=== PATIENT | female | born 1975 | race Caucasian/White ===

== ENCOUNTER 2018-02-07 12:10 | Emergency (ER) | payer OTHER ==
[~2018-02-07] VITALS: Ht 162.6 cm; Wt 87.5 kg
[~2018-02-07 12:10] MED LIST: ALEVE220 MG PO; HYCET 325 MG/1473 ML PO; OMEPRAZOLE D/R20 MG PO; ZYRTEC ALLERGY10 MG PO
--- NOTE | 2018-02-07 14:06 | RADIOLOGY REPORT ---
EXAMINATION: CHEST 2 VIEWS CLINICAL INFORMATION: Chest pain. COMPARISON: 06/16/2015. TECHNIQUE: PA and lateral views of the chest were obtained. FINDINGS: The cardiac silhouette is not enlarged. The mediastinal and hilar contours are unremarkable. There are neither pleural effusions nor pneumothoraces. There are no consolidations. The osseous structures are unremarkable. IMPRESSION: No evidence for acute disease.
[2018-02-07 15:01] LABS: ABSOLUTE BASOPHIL COUNT 0 /CUMM (0.0-0.2); ABSOLUTE EOSINOPHIL COUNT 0 /CUMM (0.0-0.7); ABSOLUTE GRANULOCYTE CT 4.7 /CUMM (1.4-6.5); ABSOLUTE LYMPH COUNT 2.5 /CUMM (1.2-3.4); ABSOLUTE MONOCYTE COUNT 0.6 /CUMM (0.10-0.60); BASOPHIL % 0.5 % (0.0-2.0); EOSINOPHIL % 0.5 % (0-5); GRANULOCYTE % 59.5 % (42.2-75.2); MEAN CORPUSCULAR HGB CONC 32.7 G/DL (33.0-37.0); MEAN CORPUSCULAR VOLUME 85.6 FL (81.0-99.0); MEAN PLATELET VOLUME 8.1 FL (7.4-10.4); PLATELET COUNT 290 /CUMM (130-400); RBC DISTRIBUTION WIDTH 13.8 % (11.5-14.5); RED BLOOD CELL CT 4.68 /CUMM (4.20-5.40); WHITE BLOOD CELL COUNT 7.9 /CUMM (4.8-10.8)
--- NOTE | 2018-02-07 17:06 | ED GENERAL ADULT ---
History of Present Illness General Chief Complaint: Chest Pain Stated Complaint: CHEST PRESSURE, X 2 WEEKS, HX ANXIETY Source: patient, old records Exam Limitations: no limitations Vital Signs & Intake/Output Vital Signs & Intake/Output Vital Signs Date Time Temp Pulse Resp B/P B/P Pulse O2 O2 Flow FiO2 Mean Ox Delivery Rate 02/07 1903 99.2 76 16 116/77 100 Room Air 02/07 1541 97.0 81 18 129/90 100 Room Air Room Air 02/07 1229 98.4 91 20 129/83 97 Room Air Allergies Coded Allergies: MDX - PCN (penicillin) (PCN (PENICILLIN)) (swollen mouth 06/16/15) Reconcile Medications CETIRIZINE HCL (Zyrtec) 10 MG SGL 1 CAP PO DAILY ALLERGIES (Reported) HYDROCODONE/ACETAMINOPHEN (Hycet 7.5 MG-325 MG/15 Ml Soln) 473 ML MIREYA 15 ML PO Q4 PAIN NO DRIVING WHILE TAKING NARCOTICS. Omeprazole 20 MG ECC 1 CAP PO DAILY Reflux Triage Note: PT TO ED C/O "PULSE IN STOMACH AND THROAT" X 2 WEEKS. C/O CHEST PRESSURE AT TIMES. CURRENTLY DENIES CHEST PRESSURE, C/O FEELING "NUMB". H/O ANXIETY. C/O NAUSEA. Triage Nurses Notes Reviewed? yes : No Patient currently breastfeeds: No HPI: Patient is 42 Y F with no sign PMH except anxiety and bariatric/herina repair 2y ago presented to the ED with CC of chest discomfort. Patient reported that in the last 3 weeks she was having episodes of chest/abd discomfort. She reported the discomfort as "pulsating like", travels from neck and chest to abdomen area. The most recent episode was last night, woke her up from sleep, and she could not sleep and lasted the whole night. The episodes happens occasionally, at different times but more often when lying in bed, total of 5 time in the last 3 weeks, no relation to food or exertion. She noted episodes are associated with nausea, feeling of "almost passing out" as well as anxiety. She denied SOB, vomiting, chest pain, or actually passing out, jerky motions, incontinence. She denied any chest pain. Patient denied history of syncope except one episode long time ago when she was following strict diet. Patient reported lots of mental stress related to work and study recently. Did not visit any doctor for anxiety for a long time, but was last administered xanax which she did not take due to drowsiness. 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 Occasionally drinks and smokes (1-2 Cigarettes/week). FH significant for panic attack in MOM ( when 72y from stroke) and DM in father. (Morgan Monreal MD,Adrianne Morris) Past History Travel History Traveled to [place] past 21 day No Medical History Any Pertinent Medical History? 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 No (Morgan Monreal MD,Adrianne Morris) Review of Systems Review of Systems Constitutional: Reports: see HPI. (Morgan Monreal MD,Adrianne Morris) Physical Exam Physical Exam General Appearance: well developed/nourished, no apparent distress, alert, awake Head: atraumatic, normal appearance Ears, Nose, Throat: normal pharynx, normal ENT inspection Neck: normal inspection, supple Cardiovascular: regular rate/rhythm Gastrointestinal: soft, non-tender Core Measures ACS in differential dx? No CVA/TIA Diagnosis: No Sepsis Present: No Sepsis Focused Exam Completed? No (Morgan Monreal MD,Adrianne Morris) Progress Differential Diagnoses I considered the following diagnoses in my evaluation of the patient: [axniety, palpitation, arythmia] Plan of Care: Orders Procedure Date/time Status TROPONIN LEVEL 02/07 1800 Active EKG 02/07 1800 Active HUMAN BETA HCG SCREEN 02/07 1450 Complete TROPONIN LEVEL 02/07 1249 Complete COMPREHENSIVE METABOLIC PANEL 02/07 1249 Complete CBC WITHOUT DIFFERENTIAL 02/07 1249 Complete EKG 02/07 1213 Active Laboratory Tests 02/07/18 1450: Anion Gap 10, Estimated GFR > 60, BUN/Creatinine Ratio 28.3 H, Glucose 87, Calcium 9.5, Total Bilirubin 0.6, AST 25, ALT 32, Alkaline Phosphatase 57, Troponin I < 0.01, Total Protein 8.0, Albumin 4.1, Globulin 3.9, Albumin/ Globulin Ratio 1.1, Total Beta HCG NEGATIVE, CBC w Diff NO MAN DIFF REQ, RBC 4.68, MCV 85.6, MCH 28.0, MCHC 32.7 L, RDW 13.8, MPV 8.1, Gran % 59.5, Lymphocytes % 31.4, Monocytes % 8.1, Eosinophils % 0.5, Basophils % 0.5, Absolute Granulocytes 4.7, Absolute Lymphocytes 2.5, Absolute Monocytes 0.6, Absolute Eosinophils 0, Absolute Basophils 0 02/07/18 1251: Total Beta HCG Cancelled (Morgan Monreal MD,Adrianne Morris) CXR Impression: PATIENT: BEN BRUNER PRESENT AGE: 42 PATIENT ACCOUNT NO: [id number] : 76 LOCATION: [facility] ORDERING PHYSICIAN: Ayden GRAY SERVICE DATE: 02/07/18 EXAM TYPE: RAD - XRY-CHEST XRAY, TWO VIEWS EXAMINATION: CHEST 2 VIEWS CLINICAL INFORMATION: Chest pain. COMPARISON: 06/16/2015. TECHNIQUE: PA and lateral views of the chest were obtained. FINDINGS: The cardiac silhouette is not enlarged. The mediastinal and hilar contours are unremarkable. There are neither pleural effusions nor pneumothoraces. There are no consolidations. The osseous structures are unremarkable. IMPRESSION: No evidence for acute disease. DICTATED BY: Kalin Wasserman MD DATE/TIME DICTATED:02/07/181401 COST REPORT CLERK:PRADEEP DATE/TIME TRANSCRIBED:02/07/181401 CONFIDENTIAL, DO NOT COPY WITHOUT APPROPRIATE AUTHORIZATION. <Electronically signed in Other Vendor System> SIGNED BY: Kalin Wasserman MD 02/07/181405 Initial ED EKG: NSR, rate (69), inverted T waves in V2 compared to prior Prior EKG: changed Comments: 02/07/2018 7:33:24 PM I have updated ben on her test results. She has no complaint at this time. She is agreeable to a few Xanax for possible anxiety. We have discussed a repeat EKG and troponin but given her lack of risk factors the patient has declined this. I do not feel this patient is at high risk of coronary artery disease/ACS. (Kateryna VENEGAS,Dilan Mujica) Departure Departure Condition: Stable Referrals: Melvin VENEGAS,Hesham Lopez (PCP/Family) Departure Forms: Customer Survey General Discharge Information (Morgan Monreal MD,Adrianne Morris) Departure Disposition: HOME OR SELF CARE Clinical Impression Primary Impression: Anxiety Secondary Impressions: Atypical chest pain Additional Instructions: Rest, no exertion. Xanax as needed for chest discomfort or anxiety. Follow-up with your primary care physician this week for reevaluation. Return if any concerns or sudden worsening. Please note that there might be incidental findings in your evaluation that are unrelated to the current emergency department visit. Please notify your primary care doctor about this emergency department visit in order to obtain and review all of the testing performed so that these incidental findings can be monitored as needed. If you had an x-ray performed, please understand that some fractures may not be seen on the initial set of x-rays. If your symptoms persist you might need a repeat set of x-rays to check for such a fracture. If you had a laceration evaluated, please understand that foreign bodies such as glass or wood may not be visible to the naked eye or on plain x-rays. If the wound becomes red, swollen, increasingly more painful or if there is any drainage from the wound, please have it reevaluated by a physician for the possibility of a retained foreign body. If you're unable to follow up as outlined in the discharge instructions please return to the emergency department. Thank you for choosing the [facility] Emergency Department for your care. It was a pleasure to serve you today. Dilan Avendaño M.D. [facility] Prescriptions: Current Visit Scripts Alprazolam (Xanax) 1 TAB PO BIDP PRN anxiety #8 TAB Resident Co-Sign Statement Statement: ED Attending supervision documentation- [x] I saw and evaluated the patient. I have also reviewed all the pertinent lab results and diagnostic results. I agree with the findings and the plan of care as documented in the Resident's documentation. [] I have reviewed the ED Record and agree with the Resident's documentation. [] Additions or exceptions (if any) to the Resident's note and plan are summarized below: [] (Kateryna VENEGAS,Dilan Mujica) Critical Care Note Critical Care Note Critical Care Time: non-applicable (Kateryna VENEGAS,Dilan Mujica)
[2018-02-07 19:03] VITALS: BP 116/77
[2018-02-07] MEDS ORDERED: XANAX0.25 M1 PO (19:35)
== END 2018-02-07 19:49 ==
LOC: ERH 12:10
PROVIDERS: Physician Assistant Medical
DX: F41.9 Anxiety disorder, unspecified (principal); R07.89 Other chest pain
CPT/HCPCS: 71046; 93005; 93010